=== PATIENT | male | born 1940 | race Caucasian/White ===

== ENCOUNTER 2016-10-16 08:44 | Inpatient (IN) ==
[2016-10-16 09:51] LABS: MANUAL DIFF NEEDED? NO
[2016-10-16 09:54] LABS: BASO% 0.4 % (0.0-0.8); EOS# 0.17 X1000 (0.0-0.7); EOS% 1.5 % (0.0-10.0); HEMATOCRIT 34.2 % (42.0-52.0); HEMOGLOBIN 11.4 g/dL (14.0-18.0); IMM GRAN# 0.03 X1000 (0.0-0.04); IMM GRAN% 0.3 % (0.0-0.5); LYMPH# 0.95 X1000 (1.2-3.4); LYMPH% 8.4 % (20.5-51.1); MCH 30.4 PG (27-31); MCHC 33.3 g/dL (33-37); MCV 91.2 FL (81-99); MONO# 0.66 X1000 (0.11-0.59); MONO% 5.8 % (1.7-9.3); MPV 10.3 FL (7.4-10.4); NEUT% 83.6 % (42.2-75.2); PLT 144 X1000 (130-400); RBC 3.75 XMIL (4.7-6.1)
[2016-10-16 10:04] LABS: INR 1.34; PROTIME 14.3 Seconds (9.2-11.7)
[2016-10-16 10:28] LABS: URINE CULTURE NEEDED? NO; URINE MICRO REVIEW NEEDED? NO; URINE SOURCE CATH
[2016-10-16 10:34] LABS: BILIRUBIN URINE NEGATIVE (NEGATIVE); BLOOD URINE MODERATE (NEGATIVE); COLOR YELLOW; GLUCOSE URINE NEGATIVE (NEGATIVE); LEUKOCYTES URINE NEGATIVE (NEGATIVE); NITRITE URINE NEGATIVE (NEGATIVE); PH URINE 6.5; PROTEIN URINE NEGATIVE (NEGATIVE); SP GRAVITY URINE 1.015; TURBIDITY URINE CLEAR (CLEAR); UROBILINOGEN URINE NORMAL (NORMAL)
[2016-10-16 10:35] LABS: AGAP 11; ALKALINE PHOSPHATASE 23 U/L (32-122); BUN 8 mg/dL (8-22); CALCIUM 4.7 mg/dL (8.8-10.2); CHLORIDE 115 mmol/L (98-107); CK PROFILE 131 U/L (24-204); COSMO 281; GOT 10 U/L (10-34); GPT 6 U/L (10-44); POTASSIUM 2.5 mmol/L (3.5-5.1); SODIUM 143 mmol/L (136-145); TCO2 17 mmol/L (25-35); TOTAL PROTEIN 3.5 g/dL (6.3-8.3)
[2016-10-16 10:36] LABS: UR EPITHELIAL CELLS <10 /HPF (<10); URINE BACTERIA NEGATIVE /HPF; URINE RBC 20-40 /HPF (<10); URINE WBC <10 /HPF (<10)
[2016-10-16] MEDS ORDERED: OFIRMEV 1000 MG/ISOTONIC SOLN 1,000 MG/100 ML BOTTLE ONE (12:23)
[2016-10-16] MEDS ORDERED: NS + KCL 20 MEQ 1,000 ML IV ONE (12:24)
[2016-10-16] MEDS: OFIRMEV 1000 MG/ISOTONIC SOLN 1,000 MG/100 ML BOTTLE IV SCH ×2 (12:30→18:23)
[2016-10-16] MEDS ORDERED: CALCIUM GLUCONATE 1 GM in NS 50 ML IV ONE (12:39)
[2016-10-16] MEDS ORDERED: VANCOMYCIN 1 GM/NS 1 GM/250 ML IVPB IV ONE ×2 (12:40→18:00)
[2016-10-16] MEDS ORDERED: ZOSYN 3.375 GM/NS 3.375 GM/50 ML IVPB IV ONE (12:40)
[2016-10-16] MEDS ORDERED: MAGNESIUM SULFATE 2 GM/S.W.I. 2 GM/50 ML IVPB IV ONE (12:50)
[2016-10-16] MEDS ORDERED: POTASSIUM CHLORIDE 60 MEQ in NS 500 ML IV SCH (13:45)
[2016-10-16 14:27] LABS: AGAP 14; ALKALINE PHOSPHATASE 47 U/L (32-122); BUN 12 mg/dL (8-22); CALCIUM 9.2 mg/dL (8.8-10.2); CHLORIDE 96 mmol/L (98-107); COSMO 266; GOT 30 U/L (10-34); GPT 15 U/L (10-44); POTASSIUM 4.5 mmol/L (3.5-5.1); SODIUM 133 mmol/L (136-145); TCO2 23 mmol/L (25-35); TOTAL BILIRUBIN 0.99 mg/dL (0.20-1.00); TOTAL PROTEIN 6.7 g/dL (6.3-8.3)
--- NOTE | 2016-10-16 14:51 | Diag Imaging Result Document ---
PROCEDURE NAME: CHEST-1 VIEW - 10/16/2016 PORTABLE CHEST: FINDINGS: Poor inspiratory effort. The heart is not enlarged. There are calcified granuloma in the lower right lung. There are dense infiltrates in the left base. No pleural effusions identified. IMPRESSION: Dense left basilar infiltrates. Followup PA and lateral recommended.
[2016-10-16] MEDS ORDERED: STERILE WATER INJ. INJ PRN (16:31)
[2016-10-16] MEDS: ATIVAN IV PRN ×3 (16:31→22:09)
[2016-10-16] MEDS ORDERED: VANCOMYCIN IV PER PHARMACY MISC SCH (16:31)
[2016-10-16] MEDS: DUONEB (A & A) INH SCH ×2 (16:45→21:30)
--- NOTE | 2016-10-16 17:33 | HISTORY AND PHYSICAL ---
CHIEF COMPLAINT: Fever. PRIMARY CARE PROVIDER: Dr. Jonel Segal. HISTORY OF PRESENT ILLNESS: Mr. Dario Pritchard is a 76-year-old, male with a history of dementia, constipation, TIAs, who apparently back on October 02, went to his primary care provider with complaints of coughing up bloody phlegm. He was started on Keflex and steroid therapy. Apparently, he improved, but then started having a cough again with some bloody phlegm that started over the weekend and then yesterday started having a fever of a subjective fever of 102. They returned to his primary care provider who started him on azithromycin. When he went home, he continued to have fever. Started having muscle jerking and twitching of the lower and upper extremities, became somewhat unresponsive around 0230 this morning and the ambulance was called. Presenting to the ER, he is very coarse throughout the left lung. He has a white count of 11,000 and he spiked a fever up to 103. He was started on vancomycin and Zosyn for broad spectrum coverage. He has had blood cultures. Urinalysis is negative for infection and he has not produced sputum for culture at this time. He also had low electrolytes where the potassium was 2.5, calcium was low, so those have been replaced, which could be the cause for his muscle jerking. Will admit him to the ICU and place IV fluids, replace electrolytes and give broad spectrum IV antibiotics and monitor closely. PAST MEDICAL HISTORY: Dementia, constipation, TIAs. SURGICAL HISTORY: None. SOCIAL HISTORY: Quit smoking 40 years ago. Quit smokeless tobacco about a month ago. He would chew tobacco. Denied alcohol or illicit drug use. Lives at home with his . Much information was obtained through her and his children that were at the bedside and they state that he gets around without any assistive devices. FAMILY HISTORY: Brother and sister had dementia. Mother had a kidney cancer. Father had colon and prostate cancer. REVIEW OF SYSTEMS: Difficult to obtain. ALLERGIES: No known drug allergies. HOME MEDICATIONS: Azithromycin 250 mg, docusate sodium 200 mg p.o. nightly, Pepcid 10 mg p.o. daily. Breo Ellipta inhaler daily. Seroquel 50 mg p.o. nightly. Rivastigmine tartrate 6 mg p.o. twice daily. LABORATORY DATA: White blood cells 11,000, hemoglobin 11, hematocrit 34, platelet count 144. INR is 1.34, PTT is 39.0. Ionized calcium is 1.22. Sodium on admit was 143, potassium was 2.5, BUN 8, creatinine 0.5, glucose was 65, calcium was 4.7. Then had a repeat of electrolytes at 1:35 today. Sodium was 133, potassium 4.5, BUN was 12. Creatinine 0.9, glucose is 99, calcium was 9.2, magnesium 1.8, bilirubin 0.99. AST 30, ALT 15. Serum lactate of 1.4. Chest x-ray: Dense left basilar infiltrates. PHYSICAL EXAMINATION: VITAL SIGNS: Temperature was a 103, heart rate 89, respiratory rate 22, blood pressure 154/83, O2 saturation 95% on room air. GENERAL: Mr. Dario Pritchard is a 76-year-old, male, who is in no acute distress, but is very lethargic and febrile. HEENT: Atraumatic, normocephalic. Pupils equal, round, reactive to light. Will slightly open his eyes. Will not do extraocular movements. Mucous membranes are dry. NECK: No JVD or carotid bruits noted. CARDIOVASCULAR: S1, S2. Regular rate and rhythm. No rubs, gallops, murmurs. PULMONARY: Clear to auscultation on the right. Very coarse with rhonchi throughout the left. No accessory muscle use or work of breathing noted. Currently on nasal cannula. GI: Soft, nontender, nondistended. Positive bowel sounds x4. EXTREMITIES: No edema noted. +2 dorsalis and radial pulses. NEURO: Oriented to name only. Follows simple commands and moved all extremities. There was significant muscle twitching that was intermittent in nature in upper and lower extremities. ASSESSMENT AND PLAN: 1. Left lower lobe pneumonia with a significant fever. Will order sputum culture if he is able to get one produced. Will do albuterol/Atrovent nebulizers with budesonide nebulizers and acetylcysteine nebs. Will continue vancomycin and Zosyn. 2. Muscle upper extremity and lower extremity contractions. Possibly from fever. Could be from questionable electrolyte imbalances. Repeat BMP shows that the potassium is back to normal along with the calcium and magnesium. Will continue to monitor. 3. Dementia. Continue home medications. Geodon if needed for delirium. 4. Constipation. Continue home medications. 5. History of transient ischemic attack. 6. Deep venous thrombosis prophylaxis. Will do sequential compression devices. Dictated by LEONA Alcantara for Pawel Richardson MD cc: LEONA Alcantara MD Jay Pohl, MD
--- NOTE | 2016-10-16 17:34 | Diag Imaging Result Document ---
PROCEDURE NAME: HEAD W/WO CONTRAST - 10/16/2016 CT OF THE HEAD WITH AND WITHOUT CONTRAST: FINDINGS: There are calcifications in the vertebral and internal carotid arteries bilaterally. There is mild generalized cerebral atrophy. There are patchy lucencies in the white matter of both hemispheres. There are some small lacunae in the basal ganglia on the right. There is a similar appearance on the previous study of 07/12/2014. There is particular atrophy with ex vacuo enlargement of the right temporal horn. There is no evidence of abnormal contrast enhancement. IMPRESSION: 1. No evidence of acute disease. 2. Chronic microvascular white matter changes and atherosclerosis.
[2016-10-16] MEDS: NS 1,000 ML IV SCH (18:23)
[2016-10-16] MEDS: ZOSYN 3.375 GM/NS 3.375 GM/50 ML IVPB IV SCH (19:40)
[2016-10-16 19:50] LABS: CALCIUM 9.3 mg/dL (8.8-10.2)
[2016-10-16] MEDS: EXELON PO SCH (20:47)
[2016-10-16] MEDS: COLACE PO SCH (20:47)
[2016-10-16] MEDS: SEROQUEL PO SCH (20:47)
[2016-10-16] MEDS: PULMICORT INH SCH (21:30)
[2016-10-16] MEDS: MUCOMYST 20% INH SCH (21:30)
[2016-10-17] MEDS: OFIRMEV 1000 MG/ISOTONIC SOLN 1,000 MG/100 ML BOTTLE IV SCH ×5 (00:37→23:31)
[2016-10-17] MEDS: ATIVAN IV PRN (00:38)
[2016-10-17] MEDS: ZOSYN 3.375 GM/NS 3.375 GM/50 ML IVPB IV SCH ×4 (02:33→19:42)
[2016-10-17] MEDS: DUONEB (A & A) INH SCH ×4 (03:50→21:10)
[2016-10-17 05:05] LABS: MANUAL DIFF NEEDED? NO
[2016-10-17 05:24] LABS: BASO% 0.4 % (0.0-0.8); EOS# 0.16 X1000 (0.0-0.7); EOS% 1.1 % (0.0-10.0); HEMOGLOBIN 16.3 g/dL (14.0-18.0); IMM GRAN# 0.04 X1000 (0.0-0.04); IMM GRAN% 0.3 % (0.0-0.5); LYMPH# 2.08 X1000 (1.2-3.4); LYMPH% 14.5 % (20.5-51.1); MCH 30.2 PG (27-31); MCHC 33.3 g/dL (33-37); MCV 90.9 FL (81-99); MONO# 1.54 X1000 (0.11-0.59); MONO% 10.7 % (1.7-9.3); MPV 10.7 FL (7.4-10.4); PLT 176 X1000 (130-400); RBC 5.39 XMIL (4.7-6.1)
[2016-10-17 05:31] LABS: AGAP 15; ALKALINE PHOSPHATASE 49 U/L (32-122); BUN 14 mg/dL (8-22); CALCIUM 8.9 mg/dL (8.8-10.2); CHLORIDE 99 mmol/L (98-107); COSMO 272; GOT 48 U/L (10-34); GPT 20 U/L (10-44); POTASSIUM 4.5 mmol/L (3.5-5.1); SODIUM 136 mmol/L (136-145); TCO2 22 mmol/L (25-35); TOTAL BILIRUBIN 1.32 mg/dL (0.20-1.00); TOTAL PROTEIN 7.2 g/dL (6.3-8.3)
[2016-10-17] MEDS: NS 1,000 ML IV SCH ×2 (05:52→09:44)
[2016-10-17] MEDS: PEPCID PO SCH (09:21)
[2016-10-17] MEDS: EXELON PO SCH ×2 (09:21→21:04)
[2016-10-17] MEDS: MUCOMYST 20% INH SCH ×2 (10:28→21:10)
[2016-10-17] MEDS: PULMICORT INH SCH ×2 (10:28→21:10)
--- NOTE | 2016-10-17 14:38 | PROGRESS NOTE ---
DATE: 10/17/2016 SUBJECTIVE: Patient is definitely more lethargic. As per family, he has been like this since last night. OBJECTIVE: Vital Signs: Temperature 98.5 degrees, heart rate 102, respiratory rate 17, blood pressure 104/60, O2 saturation 97% on 2 L nasal cannula. General Examination: This is a 76-year- old male, lying in bed, in no acute distress. HEENT: Head is normocephalic, atraumatic. Anicteric sclerae. Pale conjunctivae. Mucous membranes moist. Neck: Supple. No JVD noted. No carotid bruits. No lymphadenopathy. No thyromegaly. Cardiovascular: S1, S2 heard. No murmurs, gallops, or rubs. Regular rate and rhythm. Respiratory: Clear bilaterally to auscultation with very coarse breath sounds in the left base. Not using any accessory muscles or having work of breathing. GI: Soft. Nontender to palpation. Bowel sounds present. No organomegaly. Extremities: No clubbing, cyanosis, or edema. Peripheral pulses present in both legs. Neurological: Patient is alert and oriented x3. The patient is more lethargic and does not follow commands. Apparently he moves 4 extremities spontaneously. ASSESSMENT AND PLAN: 1. Left lower lobe pneumonia. Patient is on vancomycin and Zosyn. We will continue with nebulizations including albuterol and Atrovent. White cell count is normal, afebrile. We will continue with the same management. 2. New onset seizure. We were paged yesterday by the nurse. Apparently there was 1 episode of seizure but the patient was lethargic. So, we ordered a CT of the head with and without contrast which was not conclusive. At this time we are going to consult Dr. Gaviria and see if this patient really needs an EEG or not. 3. Dementia. Will continue home medications and Geodon if needed for dementia. 4. Constipation. Will continue with home medications. 5. History of transient ischemic attack. Aware. 6. Deep vein thrombosis prophylaxis with compression devices. cc: Pawel Richardson MD
--- NOTE | 2016-10-17 15:14 | CONSULTATION ---
DATE OF CONSULTATION: 10/17/2016 Mr. Pritchard is 76 years old with longstanding dementia, and he has possible recent hemoptysis and then presented with apparent tetany. He is not alert now and, based on his baseline cognitive impairment, I do not think he is able to provide accurate detailed history. History is taken from review of the hospital record and from discussion with attentive family, including , at the bedside. reports he had seemed stable cognitively in recent months. He had used donepezil in the remote past and then had unsteady gait. He took memantine briefly. He used rivastigmine patch and tolerated that at 4.6 mg daily dose. After the rivastigmine patch dose was increased to 9.5 mg daily, he had some problems with skin irritation at the patch site. For that reason, about 6 months ago, according to , he was switched to rivastigmine capsules 6 mg b.i.d. and he tolerated that change. Specifically, denies muscle cramping problems then and he did not have any typical cholinergic GI side effects then. About 2 weeks ago, he started "coughing up bloody stuff" and he had a course of antibiotics. His coughing improved. He presented 2 days ago with fever and memory seemed a little bit worse then. Later that day, approximately 40 hours ago, he began to have involuntary twitching movements initially on 1 side, but then involving all limbs vigorously, spontaneously, and simultaneously. His alertness was not good at that point. There was never clearly documented unconsciousness. He presented to the hospital and was found to have calcium 4.7, potassium 2.5, blood sugar 65. WBC count was 14,000. His metabolic problems were quickly corrected. He had initial temperature of 103 degrees, but has been afebrile since noon yesterday. Noncontrast CT of the head showed old right basal ganglia lacune and typical bilateral white matter changes, but nothing focal or acute and no evidence of bleeding. There is no history of organophosphate exposure. His magnesium and phosphorus levels were all normal. There is no history of parathyroid disease. Parathyroid hormone level was normal at 30 pg/mL yesterday afternoon. EXAMINATION: Mr. Pritchard is supine, able to be briefly alert, not continuing alertness if not vigorously stimulated. Tone is equal in the limbs. I witnessed frequent, rapid , involuntary muscle contraction involving all limbs, more prominent in the arms right now. Plantar response is silent bilaterally. Reflexes are 1+ at the wrist and 2+ at the knees. I did not ask him to stand. He has full lateral eye movement with passive head turning. He is breathing spontaneously. IMPRESSIONS: 1. Tetany with typical hypocalcemia. Rivastigmine as cholinesterase inhibitor may aggravate that condition, but clearly is not the cause of the tetany. We can consider reducing the rivastigmine dose or holding some doses, but I do not think that will make much difference in his recovery. 2. Baseline dementia, treated with cholinesterase inhibitor, reported by family to have a stable course before onset of recent illness. We might consider adding memantine again carefully later. Since he did not tolerate full-dose rivastigmine patch, he may continue rivastigmine capsules or we might carefully try donepezil tablet again later. 3. Reported possible hemoptysis. If he has pneumonia, as indicated on chest x- ray, that could be responsible for some of the deterioration in mental status, particularly in light of his baseline dementia. I do not have any urgent suggestion from a neurologic standpoint. I encouraged family to continue to be patient and hope that he will recover to baseline with maintenance of normal electrolytes, particularly calcium. If we do not see recovery with that management, we might consider EMG study, muscle biopsy, and other neuromuscular workup. I doubt that will be necessary. Thanks for asking me to see Mr. Pritchard. cc: MD FELIX Antoine III
[2016-10-17] MEDS: VANCOMYCIN 1.75 GM in NS 250 ML IV SCH (17:34)
[2016-10-17] MEDS: SEROQUEL PO SCH (21:04)
[2016-10-17] MEDS: COLACE PO SCH (21:04)
[2016-10-18] MEDS: NS 1,000 ML IV SCH ×2 (00:52→13:49)
[2016-10-18] MEDS: ZOSYN 3.375 GM/NS 3.375 GM/50 ML IVPB IV SCH ×4 (02:35→19:35)
[2016-10-18] MEDS: DUONEB (A & A) INH SCH ×4 (03:45→21:25)
[2016-10-18] MEDS: OFIRMEV 1000 MG/ISOTONIC SOLN 1,000 MG/100 ML BOTTLE IV SCH ×4 (05:34→23:49)
[2016-10-18] MEDS: EXELON PO SCH ×2 (08:00→20:41)
[2016-10-18] MEDS: PEPCID PO SCH (08:00)
[2016-10-18 10:46] LABS: MANUAL DIFF NEEDED? NO
[2016-10-18 11:02] LABS: BASO% 0.6 % (0.0-0.8); EOS# 0.37 X1000 (0.0-0.7); EOS% 2.9 % (0.0-10.0); HEMATOCRIT 42.7 % (42.0-52.0); IMM GRAN# 0.03 X1000 (0.0-0.04); IMM GRAN% 0.2 % (0.0-0.5); LYMPH# 1.17 X1000 (1.2-3.4); LYMPH% 9.2 % (20.5-51.1); MCH 30.5 PG (27-31); MCHC 32.8 g/dL (33-37); MONO# 1.46 X1000 (0.11-0.59); MONO% 11.5 % (1.7-9.3); NEUT% 75.6 % (42.2-75.2); PLT 152 X1000 (130-400); RBC 4.59 XMIL (4.7-6.1)
[2016-10-18 11:23] LABS: AGAP 12; BUN 19 mg/dL (8-22); CALCIUM 8.3 mg/dL (8.8-10.2); CHLORIDE 100 mmol/L (98-107); COSMO 272; POTASSIUM 4.7 mmol/L (3.5-5.1); SODIUM 135 mmol/L (136-145); TCO2 23 mmol/L (25-35)
--- NOTE | 2016-10-18 11:32 | PROGRESS NOTE ---
DATE: 10/18/2016 SUBJECTIVE: Mr. Pritchard is very poorly responsive this morning. OBJECTIVE: With vigorous stimulation, he moaned, groaned, did not speak. He stiffened his limbs and there was some tremulousness, but no clonic activity. When not stimulated, he seemed more peaceful, with less tremulousness. Plantar response is extensor bilaterally. Tone is equal in the limbs. Neck is supple. He has full lateral eye movement with passive head turning. He has had gradually less and less of the involuntary muscle contraction noted in the limb muscles. Calcium has been stable at around 8.9 to 9.3 for the last 48 hours. I do not see anything new on the chemistry profile. There was report of possible seizure overnight. I think this was more likely tremulousness or increased tetany, but we will get EEG to make sure he is not having subclinical seizures now. I discussed that unlikely possibility with family. ASSESSMENT AND PLAN: We reviewed discussion of the baseline encephalopathy predisposing him to a relatively protracted course following metabolic disturbance. I do not have any other suggestion from neurologic standpoint now. Thanks for allowing me to follow Mr. Pritchard. cc: Valorie Gaviria III, MD
[2016-10-18] MEDS: MUCOMYST 20% INH SCH ×2 (12:00→21:25)
[2016-10-18] MEDS: PULMICORT INH SCH ×2 (12:01→21:25)
--- NOTE | 2016-10-18 13:03 | PROGRESS NOTE ---
DATE: 10/18/2016 SUBJECTIVE: The patient is still lethargic. Responds to pain stimuli only. As per family who is at bedside, the patient has been like that for the last 24 hours. He spiked fever last night. OBJECTIVE: Vital Signs: Temperature 99.0 degrees, heart rate 90, respiratory rate 18, blood pressure 116/59, O2 saturation 99% on 2 L nasal cannula. General Examination: This is a 76-year- old male, lying in bed, in no acute distress. HEENT: Head is normocephalic, atraumatic. Anicteric sclerae and pale conjunctivae. Mucous membranes moist. Neck: Supple. No JVD noted. No carotid bruits. No lymphadenopathy. No thyromegaly. Cardiovascular: S1, S2 heard. No murmurs, gallops, or rubs. Regular rate and rhythm. Respiratory: Clear bilaterally to auscultation. No work of breathing. Respiratory: Coarse breath sounds present in both pulmonary naylor. The patient is not using any accessory muscles or having work of breathing. Abdomen: Soft. Nontender to palpation. Bowel sounds present. No organomegaly. Extremities: No clubbing, cyanosis, or edema. Peripheral pulses present in both legs. Neurological: Patient is lethargic. He does not follow commands. Apparently he moves 4 extremities. LABORATORY DATA: There are no labs from today. ASSESSMENT AND PLAN: 1. Left lower lobe pneumonia. Patient is on vancomycin and Zosyn from 2 days ago but apparently is still spiking fever. So at this time, we are going to continue with the same management but we are going to do a CT of the chest without contrast. 2. New onset seizures. Apparently the patient had 1 episode of seizure and although initially it was thought that it was probably tetany because calcium was low when we rechecked the labs 1 hour later they were completely normal so I think that there may be a component of seizures so an EEG was ordered by Dr. Gaviria, neurologist who was consulted. Help appreciated. Will see what that exam shows. 3. Dementia. Patient is on home medications. 4. Constipation. We will continue home medications. 5. History of TIA. Aware. cc: Pawel Richardson MD
--- NOTE | 2016-10-18 13:15 | Diag Imaging Result Document ---
PROCEDURE NAME: CT THORAX W/O CONTRAST - 10/18/2016 CT CHEST: A CT dose reduction protocol was used. COMPARISON: 10/16/2016. FINDINGS: There is grossly similar, dense opacification at the posterior portion of the left lower lobe. There is also some dense opacification of the medial right lower lobe. Both of these areas appear irregular like infiltrates, but are fairly well demarcated. The right lower lobe consolidation appears new from prior. There are severe degenerative osteophytes throughout the thoracic spine. No acute bony lesions. Heart and great vessels are normal. There is a low- density right adrenal gland mass compatible with a benign fatty adenoma. This measures 2.9 cm. The density measurement is 2. The gallbladder is packed with numerous gallstones exhibiting internal vacuum phenomenon. The bile is hyperdense likely from the recent contrast administration on 10/16/2016. No evidence of gallbladder wall thickening or surrounding inflammation. IMPRESSION: 1. Dense bilateral lower lobe infiltrate suggesting pneumonia. Recommend treatment and followup. 2. Benign-appearing right adrenal adenoma. 3. Gallbladder packed with gallstones. [facility]
[2016-10-18] MEDS: VANCOMYCIN 1.75 GM in NS 250 ML IV SCH (17:29)
[2016-10-18] MEDS: COLACE PO SCH (20:41)
[2016-10-18] MEDS: SEROQUEL PO SCH (20:42)
--- NOTE | 2016-10-18 22:20 | EEG REPORT ---
DATE: 10/18/2016 ICU bed 11 EEG #[id number] COMMENT: This is a digitally recorded EEG done portably in the ICU on a 76-year-old patient with recent profound hypocalcemia, tetany, baseline dementia, question of recent seizure. FINDINGS: During waking, polymorphic and rhythmic theta frequencies are present across both hemispheres diffusely. There is very prominent slowing into the delta range present across the frontal and central regions bilaterally. Drowsing occurred briefly. There was no variation to correlate with spontaneous sleep. Photic stimulation did not alter the record. No definite epileptiform discharge was identified. INTERPRETATION: Abnormal EEG because of generalized slowing. CORRELATION: This is indicative of a diffuse encephalopathy and is nonspecific. The absence of epileptiform discharges on a single EEG does not exclude a clinical diagnosis of seizures, but there is nothing on this record to establish the presence of a seizure disorder. cc: Valorie Gaviria III, MD
[2016-10-19] MEDS: ZOSYN 3.375 GM/NS 3.375 GM/50 ML IVPB IV SCH ×4 (02:06→19:59)
[2016-10-19] MEDS: DUONEB (A & A) INH SCH ×6 (04:05→23:13)
[2016-10-19] MEDS: OFIRMEV 1000 MG/ISOTONIC SOLN 1,000 MG/100 ML BOTTLE IV SCH ×5 (05:28→23:56)
[2016-10-19] MEDS: NS 1,000 ML IV SCH ×2 (07:40→23:00)
[2016-10-19] MEDS: MUCOMYST 20% INH SCH ×2 (08:21→19:03)
[2016-10-19] MEDS: PULMICORT INH SCH ×2 (08:22→19:03)
[2016-10-19 08:45] LABS: MANUAL DIFF NEEDED? NO
[2016-10-19 08:50] LABS: BASO% 0.8 % (0.0-0.8); EOS# 0.24 X1000 (0.0-0.7); EOS% 1.7 % (0.0-10.0); HEMATOCRIT 43.7 % (42.0-52.0); IMM GRAN# 0.03 X1000 (0.0-0.04); IMM GRAN% 0.2 % (0.0-0.5); LYMPH# 1.43 X1000 (1.2-3.4); LYMPH% 9.9 % (20.5-51.1); MCV 93.8 FL (81-99); MONO% 8.3 % (1.7-9.3); MPV 10.3 FL (7.4-10.4); NEUT% 79.1 % (42.2-75.2); PLT 169 X1000 (130-400); RBC 4.66 XMIL (4.7-6.1)
[2016-10-19 09:01] LABS: ALLEN TEST YES; BE -6.8 mmoll (-3.0-3.0); BLOOD TYPE ARTERIAL; DRAW SITE R RADIAL; METHB 1.4 % (0.0-1.5); O2(CT) 17.8 mL/dL (15.0-23.0); PO2(98.6) 56 mmHg (60-100); SAMPLE BLOOD; SAO2 90.9 % (95.0-100.0); THB 14.5 g/dL (11.5-17.4)
[2016-10-19 09:03] LABS: MODALITY VENTIMASK; PCO2(98.6) 72 mmHg (35-45); pH(98.6) 7.13 (7.35-7.45)
[2016-10-19] MEDS: EXELON PO SCH ×2 (09:18→23:01)
[2016-10-19] MEDS: PEPCID PO SCH (09:18)
[2016-10-19 09:20] LABS: AGAP 14; BUN 22 mg/dL (8-22); CALCIUM 8.3 mg/dL (8.8-10.2); CHLORIDE 100 mmol/L (98-107); COSMO 276; POTASSIUM 4.8 mmol/L (3.5-5.1); SODIUM 136 mmol/L (136-145); TCO2 22 mmol/L (25-35)
[2016-10-19] MEDS: ATIVAN IV PRN (09:26)
[2016-10-19 10:31] LABS: ALLEN TEST YES; BE -6.1 mmoll (-3.0-3.0); BLOOD TYPE ARTERIAL; DRAW SITE R RADIAL; METHB 2.1 % (0.0-1.5); O2(CT) 20.6 mL/dL (15.0-23.0); PO2(98.6) 337 mmHg (60-100); SAMPLE BLOOD; SAO2 99.7 % (95.0-100.0); THB 14.6 g/dL (11.5-17.4)
[2016-10-19 10:33] LABS: MODALITY BI PAP; PCO2(98.6) 65 mmHg (35-45); pH(98.6) 7.17 (7.35-7.45)
--- NOTE | 2016-10-19 11:07 | PROGRESS NOTE ---
DATE: 10/19/2016 SUBJECTIVE: The patient is still lethargic, responds to painful stimuli only. OBJECTIVE: Vital signs: Temperature 99.8 but at midnight he got a 100.3, heart rate 150, respiratory rate 24, blood pressure 149/70, O2 sat 94% on 2 L nasal cannula. General: This is a 76-year-old male lying in bed in no acute distress. HEENT: Head is normocephalic and atraumatic. Anicteric sclerae. Pale conjunctivae. Mucous membranes moist. Neck : Supple, no JVD noted, no carotid bruits, no lymphadenopathy, no thyromegaly. Cardiovascular: S1, S2 heard, no murmurs, gallops, or rubs, and regular rate and rhythm. Respiratory: Coarse breath sounds are still present in both pulmonary naylor. The patient is not using any accessory muscles or having work of breathing. Abdomen: Soft, nontender to palpation, bowel sounds present , no organomegaly. Extremities: No clubbing, cyanosis, or edema. Peripheral pulses present in both legs. Neurological: The patient is still lethargic, does not follow commands, of course. LABORATORY DATA: ABG shows pH of 7.13, pCO2 of 72, pO2 of 56. BMP shows a white cell count of 14.50, hemoglobin 14.0, hematocrit 43.7, platelets 169. ASSESSMENT AND PLAN: 1. Acute hypercapnic respiratory failure. Because patient continues to be lethargic, we have checked an ABG with results as above. We are going to use BiPAP immediately and will check an ABG in one hour. If this patient does not respond to the therapy, will go ahead and intubate him. Pulmonary will be consulted as well. 2. Left lower lobe pneumonia. Patient on vancomycin and Zosyn for the last 3 days, but apparently he is still spiking fever. At this point, we are going to continue with the same management and will consult Dr. Aparicio to get input from Infectious Disease. 3. New-onset seizures. EEG was inconclusive. Dr. Gaviria from Neurology is following this patient, help appreciated. 4. Dementia. The patient is home medications. 5. Constipation. Will continue with home medications. 6. History of TIA, aware. Addendum: Patient family reports code status is DNR so will document it in the chart. cc: Pawel Richardson MD [facility]
--- NOTE | 2016-10-19 13:59 | PROGRESS NOTE ---
DATE: 10/19/2016 Mr. Pritchard continues to be very poorly responsive. He had fairly infrequent twitching in the muscles during my time at the bedside. His EEG did not show definite evidence of seizure, but there was generalized slowing consistent with his baseline dementia and presumed metabolic encephalopathy. I had a lengthy discussion with the and daughter regarding his poor prognosis. I agree with their plans for conservative management, focusing on comfort without adding further life support measures. I do not have any other suggestions right now from a neurologic standpoint. Thanks for allowing me to follow Mr. Pritchard. cc: Valorie Gaviria III, MD
--- NOTE | 2016-10-19 15:05 | CONSULTATION ---
DATE OF CONSULTATION: 10/19/2016 PULMONARY CONSULT REFERRING PHYSICIAN: Dr. Davison CHIEF COMPLAINT: Fever. HISTORY OF PRESENT ILLNESS: This is a 76-year-old male with a past medical history of dementia, constipation, and TIAs, who initially presented to the Emergency Room with decreased mental status, productive cough, and fever. states that he has been sick for a couple of weeks with productive cough and subjective fever. He has been in ICU since and has been tolerating nasal cannula, although minimally responsive. This morning, he developed respiratory distress and was placed on Ventimask, then nonrebreather, and now he is on BiPAP. He continues to be unresponsive and tachycardic. Family confirms Do Not Resuscitate (DNR) status, and they remain at the bedside. REVIEW OF SYSTEMS: Unable to obtain. PAST MEDICAL HISTORY: As mentioned in HPI. Otherwise noncontributory. PAST SURGICAL HISTORY: None. SOCIAL HISTORY: The patient quit smoking 40 years ago. Denied alcohol or illicit drug use. Lives at home with family. FAMILY HISTORY: Notable for dementia and kidney cancer, colon, and prostate cancer. ALLERGIES: No known drug allergies. ACTIVE MEDICATIONS: Ofirmev, Mucomyst, DuoNeb, Pulmicort, Colace, Pepcid, Ativan, vancomycin, Zosyn, Seroquel, Exelon, Geodon. PHYSICAL EXAMINATION: Vital signs: Temperature 99.8, heart rate 115, respiratory rate 24, blood pressure 149/70, oxygen saturation 94%. HEENT: Normocephalic, atraumatic. Cardiovascular: Tachycardic rate. S1, S2 present. Chest: Reduced entry with diminished breath sounds bilaterally. Some coarse breath sounds, more predominant on the left. Abdomen : Hypoactive bowel sounds. Extremities: Distal pulses palpable. Neurologic: Unresponsive. LABS AND INVESTIGATIONS: WBC 14.5, RBCs 4.66, hemoglobin 14, hematocrit 43.7, platelet count 169. Blood gas reveals a pH of 7.13, PCO2 of 72, PO2 of 56, HCO3 of 19.3, saturated oxygen of 91. CT of the chest performed on 10/18/2016 shows dense bilateral lobe infiltrates suggesting pneumonia, benign-appearing right adrenal adenoma and gallbladder packed with gallstones. ASSESSMENT AND PLAN: This is a 76-year-old male with a past medical history mentioned in the HPI who presented initially to the hospital with complaints of fever. Pneumonia, likely aspiration due to seizure like activity and encephalopathy. Respiratory failure. 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 Base line dementia. He remains unresponsive on BiPAP at this time for his respiratory failure. He is receiving antibiotics for his pneumonia, inhaled bronchodilators, Ofirmev, Ativan, and Geodon. Family at bedside does confirm DNR status. Will repeat blood gas two hours after initiation of BiPAP, and further recommendations pending diagnostic studies. Thank you for the courtesy of this consult. cc: Lisa Street MD MTDD
[2016-10-19] MEDS: VANCOMYCIN 1.75 GM in NS 250 ML IV SCH (18:16)
[2016-10-19] MEDS: COLACE PO SCH (23:01)
[2016-10-19] MEDS: SEROQUEL PO SCH (23:02)
[2016-10-20] MEDS: ATIVAN IV PRN ×6 (01:07→20:17)
[2016-10-20] MEDS: ZOSYN 3.375 GM/NS 3.375 GM/50 ML IVPB IV SCH ×3 (02:38→14:32)
[2016-10-20] MEDS: DUONEB (A & A) INH SCH ×3 (03:15→11:26)
[2016-10-20 04:58] LABS: ALLEN TEST YES; BE 5.9 mmoll (-3.0-3.0); BLOOD TYPE ARTERIAL; DRAW SITE R RADIAL; O2(CT) 19.8 mL/dL (15.0-23.0); PO2(98.6) 213 mmHg (60-100); SAMPLE BLOOD; SAO2 100.1 % (95.0-100.0); THB 14.3 g/dL (11.5-17.4); pH(98.6) 7.31 (7.35-7.45)
[2016-10-20 04:59] LABS: MODALITY BI PAP
[2016-10-20 05:00] LABS: PCO2(98.6) 69 mmHg (35-45)
[2016-10-20 05:24] LABS: BASO% 0.1 % (0.0-0.8); HEMATOCRIT 41.3 % (42.0-52.0); HEMOGLOBIN 13.3 g/dL (14.0-18.0); IMM GRAN# 0.04 X1000 (0.0-0.04); IMM GRAN% 0.3 % (0.0-0.5); LYMPH# 0.41 X1000 (1.2-3.4); LYMPH% 2.8 % (20.5-51.1); MANUAL DIFF NEEDED? YES; MCHC 32.2 g/dL (33-37); MCV 93.2 FL (81-99); MONO# 0.94 X1000 (0.11-0.59); MONO% 6.5 % (1.7-9.3); MPV 10.7 FL (7.4-10.4); NEUT% 90.3 % (42.2-75.2); PLT 164 X1000 (130-400); RBC 4.43 XMIL (4.7-6.1)
[2016-10-20 05:54] LABS: BANDS 4 % (0-1); LYMPHS 4 % (21-51); MONO 6 % (1-9)
[2016-10-20 05:56] LABS: AGAP 14; BUN 32 mg/dL (8-22); CALCIUM 8.8 mg/dL (8.8-10.2); CHLORIDE 99 mmol/L (98-107); COSMO 292; POTASSIUM 4.5 mmol/L (3.5-5.1); SODIUM 141 mmol/L (136-145); TCO2 28 mmol/L (25-35)
[2016-10-20] MEDS: OFIRMEV 1000 MG/ISOTONIC SOLN 1,000 MG/100 ML BOTTLE IV SCH ×2 (06:11→11:30)
[2016-10-20] MEDS: PULMICORT INH SCH (07:59)
[2016-10-20] MEDS: MUCOMYST 20% INH SCH (07:59)
[2016-10-20] MEDS: EXELON PO SCH (08:01)
[2016-10-20] MEDS: PEPCID PO SCH (08:01)
[2016-10-20] MEDS: ZOFRAN IV ONE ×2 (08:06→08:07)
[2016-10-20] MEDS ORDERED: ATIVAN IV PRN (09:00)
[2016-10-20] MEDS ORDERED: CLINIMIX E 4.25%-5% SOLUTION 1,000 ML IV SCH (09:20)
[2016-10-20] MEDS ORDERED: LIPOSYN 20% 250 ML IV SCH (09:20)
--- NOTE | 2016-10-20 09:54 | PROGRESS NOTE ---
DATE: 10/20/2016 SUBJECTIVE: Patient remains lethargic. As per nursing staff, the patient was having involuntary movements like 15-20 beats, moving the right upper extremity. He received Ativan and that controlled the problem. OBJECTIVE: Vital Signs: Temperature 97.6 degrees, heart rate 95, respiratory rate 16, blood pressure 135/63 and O2 saturation 100% on BiPAP machine. General: This is a 76-year-old, chronically ill-looking and frail, male, lying in bed in no acute distress. HEENT: Head is normocephalic, atraumatic. Anicteric sclerae and pale conjunctivae. Mucous membranes dry. An NG tube in place that is draining brown secretions. No blood on it. Neck: Supple. No JVD noted. No carotid bruits. No lymphadenopathy. No thyromegaly. Cardiovascular exam: S1, S2 heard. No murmurs, gallops, or rubs. Regular rate and rhythm. Respiratory exam: Coarse breath sounds. Still present in both pulmonary naylor. The patient is not using any accessory muscles or having work of breathing. Abdomen: Soft, a little bit distended, but nontender to palpation. Bowel sounds present. No organomegaly. Extremities: No clubbing, cyanosis, or edema. Peripheral pulses present in both legs. Neurological exam: The patient continues to be lethargic and apparently moves all 4 extremities. LABORATORY DATA: White cell count 14.4, hemoglobin 13.3, hematocrit 21.3, platelets 164. ABG from today shows pH 7.31, pCO2 69, PO2 113 and BMP is unremarkable. ASSESSMENT AND PLAN: 1. Acute hypercapnic respiratory failure. The patient continues to be lethargic and arterial blood gas from this morning shows still high CO2. Patient is [id number], so we are not going to intubate him. Pulmonary is following with this patient as well. Patient is on DuoNeb every 4 hours as scheduled. 2. Left lower lobe pneumonia. Patient is on vancomycin and Zosyn for the last 4 days. He is not spiking fever anymore. We are going to continue with the same management. Blood cultures are so far negative. His sputum culture grew bacteria called Hafnia alvei, which is sensitive to Zosyn. We will continue with the same management. 3. New onset seizure. Electroencephalogram was inconclusive and did not show any seizure activity. Dr. Gaviria is following this patient. I do not think that this is really truly a seizure, but involuntary movements probably related to the infection. On top of that, this patient has a baseline dementia. We will continue with Ativan as needed 4. Dementia. Patient is on home medication, but because he was not able to take any pills, he was out of medications for the last 4 days. The patient has Geodon to use it in case he becomes agitated. 5. Constipation. We will continue with home medications. 6. History of transient ischemic attack, aware. 7. Code status [id number] level 1. cc: Pawel Richardson MD
[2016-10-20] MEDS: GEODON IM PRN ×2 (10:50→21:22)
[2016-10-20] MEDS ORDERED: STERILE WATER INJ. INJ ONE (13:07)
[2016-10-20] MEDS ORDERED: GEODON IM ONE (13:07)
[2016-10-20] MEDS ORDERED: DIPRIVAN 1% 1,000 MG/100 ML BOTTLE IV SCH (13:11)
[2016-10-20] MEDS: MORPHINE IV PRN ×2 (14:12→20:17)
[2016-10-21] MEDS: MORPHINE IV PRN ×2 (04:02→19:03)
[2016-10-21] MEDS: ATIVAN IV PRN ×5 (04:02→19:06)
[2016-10-21] MEDS: GEODON IM PRN (04:04)
[2016-10-21] MEDS ORDERED: GEODON IM PRN (08:05)
--- NOTE | 2016-10-21 09:38 | PROGRESS NOTE ---
DATE: 10/21/2016 SUBJECTIVE: Patient continues to be lethargic, tachypneic, in moderate respiratory distress. Also having involuntary movements in the right leg and right arm. OBJECTIVE: Vital Signs: Temperature 101.5 degrees, heart rate 126, respiratory rate 30, blood pressure 151/69, O2 saturation 90% on nonrebreather mask. General Examination: This is a chronically ill-looking and pale, 76-year-old, male, lying in bed, in no acute distress. HEENT: Head is normocephalic and atraumatic. Anicteric sclerae and pale conjunctivae. Mucous membranes dry. Cardiovascular Examination: S1 and S2 heard. No murmurs, gallops, or rubs. Tachycardic. Respiratory Examination: Coarse breath sounds are getting worse. Also, in moderate respiratory distress. ASSESSMENT AND PLAN: 1. Acute hypercapnic respiratory failure. 2. Left lower lobe pneumonia. 3. Seizure disorder. 4. Dementia. 5. Constipation. PLAN: The patient's family has decided to withdraw care on this patient so the BiPAP machine has been discontinued and all medications as well. He is only on morphine and Ativan to control the pain sensation with shortness of breath and agitation. Also, we are using Geodon just in case for these abnormal involuntary movements. In any case, this patient is not doing any good. He is getting worse and worse day by day. We are going to transfer him to a regular room today. We will continue to monitor him closely in the hospital. cc: Pawel Richardson MD
[2016-10-21] MEDS ORDERED: OFIRMEV 1000 MG/ISOTONIC SOLN 1,000 MG/100 ML BOTTLE IV ONE (11:26)
[2016-10-22] MEDS: ATIVAN IV PRN (02:44)
[2016-10-22] MEDS: MORPHINE IV PRN (02:44)
[2016-10-22] MEDS ORDERED: TYLENOL PR PRN (07:50)
[2016-10-22 08:10] VITALS: BP 132/64
[2016-10-22] MEDS ORDERED: OFIRMEV 1000 MG/ISOTONIC SOLN 1,000 MG/100 ML BOTTLE IV PRN (09:20)
--- NOTE | 2016-10-22 10:48 | PROGRESS NOTE ---
DATE: 10/22/2016 SUBJECTIVE: The patient continues to be lethargic and no moderate respiratory distress. As per family who is at bedside, almost all involuntary movement has been controlled with medications that he is receiving. OBJECTIVE: Vital Signs: Temperature 105.9, heart rate 120, respiratory rate 15, blood pressure 132/64, O2 saturation 100% on non-rebreather mask. General Examination: This is a chronically ill-looking and frail, 76-year-old male, lying in bed, in no acute distress. HEENT: Head is normocephalic, atraumatic. Neck: Supple. No JVD. Cardiovascular: S1, S2 heard. No murmurs, gallops, or rubs. Regular rate and rhythm. Respiratory: Coarse breath sounds that are getting worse. Moderate respiratory distress. Abdomen: Soft, nondistended bowel sounds present. No organomegaly. Extremities: No clubbing, cyanosis, or edema. Neurological: The patient is on lethargic., does not follow commands. ASSESSMENT: 1. Acute hypercapnic respiratory failure. 2. Left lower lobe pneumonia. 3. Seizure disorder. 4. Dementia. 5. Constipation. PLAN: As we mentioned before, patient was admitted for all conditions mentioned above, but because this patient was not doing good and started developing severe hypercapnic respiratory failure. Finally decided to withdraw care. Currently, patient is on morphine and Ativan to control pain. Difficulty in breathing and agitation. Also involuntary movements. We are using Geodon as well. At this point, we are going to continue with the same medications. We are going to consult hospice today. We are going to remove NG tube today. We will follow this patient closely in the hospital. cc: Pawel Richardson MD
--- NOTE | 2016-10-23 18:54 | PROVIDER DOCUMENTATION ---
This chart was entered by Marino Montero Scribe, acting as scribe for Len Garcia MD. HPI-Fever - General Chief Complaint: Possible Sepsis-D Stated Complaint: seizure Time Seen by Provider: 10/16/16 09:15 Source: family, EMS Unable to obtain history due to:: altered Allergies/Adverse Reactions: Patient Allergies Allergy/AdvReac Type Severity Reaction Status Date / Time No Known Allergies Allergy Verified 10/16/16 09:19 Home Medications: Home Medication List Medication Instructions Recorded Confirmed Last Taken Type Azithromycin [Azithromycin] 1 packet PO DIRECTED 10/16/16 10/16/16 10/15/16 20:00 History Docusate Sodium [Stool Softener] 200 mg PO HS 10/16/16 10/16/16 10/15/16 20:00 History Famotidine 10 mg PO DAILY 10/16/16 10/16/16 10/15/16 09:00 History Fluticasone/Vilanterol [Breo 1 each IH DAILY 10/16/16 10/16/16 10/15/16 20:00 History Ellipta Inhaler] Quetiapine Fumarate [Seroquel] 50 mg PO HS 10/16/16 10/16/16 10/15/16 20:00 History Rivastigmine Tartrate 6 mg PO BID 10/16/16 10/16/16 10/15/16 20:00 History [Rivastigmine] - History of Present Illness-Fever Nature of Presenting Problem: 76 y/o M presents to the ED via EMS due to decreased responsiveness. family states patient recently dx with pneumonia and being treated with Zithromycin. fever at home 102. hx of dementia and TIA. family states patient has also had lower extremity tremors. denies all other symptoms. no other voiced complaints. Fever Severity/Quality: reports: greater than 102 F Onset/Duration: reports: other (x7 hours) Timing: reports: still present Severity: reports: moderate Context: reports: none Recent Illness?: reports: pneumonia Fever Therapy PONDMAN: Initiated Tylenol Cognitive Baseline: alert, oriented x3 Modifying Factors: improves with: nothing Associated Symptoms: reports: cough, fever/chills, weakness Similar Symptoms Previously?: No Recently seen or treated by another doctor?: Yes Review of Systems - Adult - REVIEW OF SYSTEMS - ADULT ROS:: ROS per family Constitutional: reports: chills, fever Eyes: reports: no symptoms reported Ears, Nose, Mouth & Throat: reports: no symptoms reported Cardiovascular: denies: chest pain, palpitations Respiratory: reports: cough. denies: shortness of breath Gastrointestinal: denies: diarrhea, nausea, vomiting Genitourinary: denies: dysuria, frequency Musculoskeletal: denies: joint pain, muscle aches Integumentary: denies: itching, rash Neurological: reports: tremors. denies: dizziness/vertigo, headache/migraines Psychiatric: reports: no symptoms reported Endocrine: reports: no symptoms reported Hematologic/Lymphatic: reports: no symptoms reported Allergic/Immunologic: reports: no symptoms reported All Other Systems: Reviewed and Negative Past History - Adult - PAST MEDICAL HISTORY-ADULT Review of Records: reports: Nursing Assessment Review, Medications Reviewed Major Childhood Illnesses: reports: denies history Cardiovascular: reports: denies history Respiratory: reports: denies history Gastrointestinal: reports: denies history Obstetrical/Gynecological: reports: denies history Genitourinary: reports: denies history Musculoskeletal: reports: denies history Neurological: reports: Alzheimer's, CVA, dementia Psychiatric: reports: denies history Endocrine/Immune: reports: denies history Other Conditions: reports: denies history - PRIOR SURGERIES/PROCEDURES Surgical/Procedure History: reports: none - IMMUNIZATION STATUS Childhood Immunizations: See Nurse Assessment Flu Vaccine: See Nurse Assessment - SOCIAL HISTORY Smoking: denies Substance Use: none/never Alcohol Use Frequency: never Physical Exam-General - PHYSICAL EXAM-ADULT Exam Limited by: decreased responsiveness Initial Vital Signs Reviewed: Yes - CONSTITUTIONAL General Appearance: mild distress, lethargic - EYES Eyes: PERRL/EOMI - HEAD, EARS, NOSE, MOUTH & THROAT HENMT: moist mucous membranes, normal ENT inspection - RESPIRATORY Respiratory: no respiratory distress, no accessory muscle use, rales (RLL) - CARDIOVASCULAR Cardiovascular: normal peripheral pulses, regular rate, rhythm - GASTROINTESTINAL (ABDOMEN) Abdominal Exam: normal bowel sounds, soft - MUSCULOSKELETAL Extremity: no pedal edema, other (bilateral lower tremor) - SKIN Integumentary: normal color, warm/dry - NEUROLOGIC Neurologic: other (unresponsive to questions). negative: facial droop Progress - PLAN OF CARE/RESULTS Progress/Plan/Lab Results: Orders Category Date Time Status Admit - [facility] Routine AdmDCTranf 10/16/16 16:31 Ordered Activity - Up with Assistance ORDERED Care 10/16/16 16:31 Completed Apply Mechanical Device [QM] ORDERED Care 10/16/16 16:31 Active Cardiac Monitoring DIRECTED Care 10/16/16 09:27 Completed Elevate Head of Bed DIRECTED Care 10/16/16 16:31 Completed Encourage Fluids DIRECTED Care 10/16/16 16:31 Completed FSBS/Accucheck Result AC + HS Care 10/16/16 16:31 Completed IV Insertion ORDERED Care 10/16/16 09:27 Completed Intake and Output-Strict Q 8-HR ASSESS Care 10/16/16 16:31 Completed Notify MD of + Sepsis Screen NOW Care 10/16/16 09:27 Inactive Nursing- Assist w/ IS as order ORDERED Care 10/16/16 16:31 Active Turn, Cough and Deep Breathe Q2HR Care 10/16/16 16:31 Completed Vital Signs Order Q1H Care 10/16/16 16:31 Completed Social Service Consult Routine Cons 10/16/16 16:31 Active CHEST-1 VIEW [RAD] Stat Exams 10/16/16 09:27 Completed BLOOD CULTURE [BLDCUL] Stat Lab 10/16/16 10:17 Completed CBC WITH DIFF [HEME] Routine Lab 10/17/16 04:08 Completed CBC WITH DIFF [HEME] Stat Lab 10/16/16 09:47 Completed CK PROFILE [SP CHEM] Stat Lab 10/16/16 09:47 Completed CMP [COMPREHENSIVE METABOLIC PANEL] [CHEM] Stat Lab 10/16/16 13:35 Completed COMPREHENSIVE METABOLIC PANEL [CHEM] Routine Lab 10/17/16 04:08 Completed COMPREHENSIVE METABOLIC PANEL [CHEM] Stat Lab 10/16/16 09:47 Completed I-STAT IONIZED CALCIUM [RESP] Routine Lab 10/16/16 13:05 Completed LACTATE, PLASMA [CHEM] Stat Lab 10/16/16 09:47 Completed LACTATE, PLASMA [CHEM] Stat Lab 10/16/16 13:35 Completed MAGNESIUM [CHEM] Routine Lab 10/17/16 04:08 Completed MAGNESIUM [CHEM] Stat Lab 10/16/16 09:47 Completed PHOSPHORUS [CHEM] Routine Lab 10/17/16 04:08 Completed PROTIME WITH INR [COAG] Stat Lab 10/16/16 09:47 Completed PTH W CA AND PHOS [CHEM] Stat Lab 10/16/16 13:35 Completed PTT [COAG] Stat Lab 10/16/16 09:47 Completed SPUTUM CULTURE WITH GRAM STAIN [RM] Routine Lab 10/16/16 21:47 Completed TROPONIN T Stat Lab 10/16/16 09:47 Completed URINALYSIS W/POSS RFLX CULT-1 [URINALYSIS] Stat Lab 10/16/16 10:00 Completed 0.9% Sodium Chloride Inj [Ns] 1,000 ml Med 10/16/16 16:31 Discontinued IV 75 mls/hr Acetaminophen [Ofirmev 1000 mg/Isotonic Soln] Med 10/16/16 12:23 Discontinued 1,000 mg in 100 ml .ROUTE As Directed Acetaminophen [Ofirmev 1000 mg/Isotonic Soln] Med 10/16/16 12:30 Discontinued 1,000 mg in 100 ml IV Q6H Acetylcysteine 20% [Mucomyst 20%] Med 10/16/16 19:30 Discontinued 3 ml INH RTBID Albuterol 2.5MG/Ipratrop 0.5MG [Duoneb (A & A)] Med 10/16/16 16:31 Discontinued 3 ml INH RTQ6H Budesonide [Pulmicort] Med 10/16/16 19:30 Discontinued 0.5 mg INH RTBID Calcium Gluconate 1 gm Med 10/16/16 12:39 Discontinued 0.9% Sodium Chloride Inj [Ns] 50 ml IV NOW Docusate Sodium [Colace] Med 10/16/16 21:00 Discontinued 200 mg PO HS Famotidine [Pepcid] Med 10/17/16 09:00 Discontinued 10 mg PO DAILY Magnesium Sulfate 2 gm/S.w.i. [Magnesium Sulfate 2 gm/S Med 10/16/16 12:50 Discontinued .w.i] 2 gm in 50 ml IV NOW Ns + KCl 20 Meq 1,000 ml Med 10/16/16 12:24 Discontinued IV Per Protocol Pharmacy Order [Vancomycin IV Per Pharmacy] Med 10/16/16 16:31 Discontinued 1 each MISC DIRECTED Piperacil/Tazobact 3.375 gm/Ns [Zosyn 3.375 gm/Ns] Med 10/16/16 12:40 Discontinued 3.375 gm in 50 ml IV NOW Piperacil/Tazobact 3.375 gm/Ns [Zosyn 3.375 gm/Ns] Med 10/16/16 20:00 Discontinued 3.375 gm in 50 ml IV Q6H Potassium Chloride 60 meq Med 10/16/16 13:45 Discontinued 0.9% Sodium Chloride Inj [Ns] 500 ml IV Q8H Quetiapine [Seroquel] Med 10/16/16 21:00 Discontinued 50 mg PO HS Rivastigmine [Exelon] Med 10/16/16 21:00 Discontinued 6 mg PO BID Vancomycin 1 gm/Ns Med 10/16/16 12:40 Discontinued 1 gm in 250 ml IV NOW Water, Sterile Inj [Sterile Water Inj] Med 10/16/16 16:31 Discontinued 1.2 ml INJ PRN PRN Ziprasidone [Geodon] Med 10/16/16 16:31 Discontinued 10 mg IM Q6H PRN PRN Aerosol Treatments Routine Oth 10/16/16 16:31 Completed Incentive Spirometer Routine Ot 10/16/16 16:31 Completed Oxygen Device Routine Ot 10/16/16 16:31 Completed Oxygen Device Stat Ot 10/16/16 09:27 Completed Pulse Oximetry Routine Ot 10/16/16 16:31 Completed Transfer/Admit Order [TRANSFER] Routine Transfer 10/16/16 14:27 Completed Result Diagrams: 10/20/16 04:38 10/20/16 04:38 - XRAY 1 XRAY Study: Chest Impression: Abnormal (hilar pneumonia; LLL infiltrate) - CONSULTS/PCP/HOSPITALIST Notification #1 *Consult/PCP/Hospitalist*: Dr Davison Time Discussed: 13:20 Consult Disposition: Will see in ED, Admit Departure - Departure Time of Disposition Decision: 16:22 DIAGNOSIS: Hypokalemia, Hypocalcemia Sepsis Qualifiers: Sepsis type: sepsis due to unspecified organism Qualified Code(s): A41.9 - Sepsis, unspecified organism Pneumonia Qualifiers: Pneumonia type: due to unspecified organism Laterality: unspecified laterality Lung location: unspecified part of lung Qualified Code(s): J18.9 - Pneumonia, unspecified organism Disposition: ADMITTED INPATIENT 09 Certified Medical Emergency: Emergent Condition: Stable - Critical Care Note This patient required my direct & personal management of CC.: Yes Total Time (mins): 60 Critical Care Statement: This patient required my direct personal management to treat or rule out processes, the absence of which, could potentiallly result in sudden, clinically significant life or limb threatening deterioration. This chart was documented by the indicated scribe, (Marino Montero Scribe) and accurately reflects the services I performed and decisions made by , Len Garcia MD, as attested by the provider's signature.
--- NOTE | 2016-10-24 03:22 | DISCHARGE SUMMARY ---
ADMISSION DATE: 10/16/2016 DISCHARGE DATE: 10/22/2016 DISCHARGE DIAGNOSES: 1. Acute hypercapnic respiratory failure. 2. Left lower lobe pneumonia. 3. Infectious encephalopathy. 4. New onset seizures. 5. Dementia. 6. Constipation. CONSULTATIONS: 1. Dr. Gaviria from neurology. 2. Dr. Lisa Street from pulmonary. PROCEDURES: CT of the chest showed dense bilateral lower lobe infiltrates, suggesting pneumonia. Gallbladder packed with gallstones. Head CT showed no evidence of acute disease and chronic microvascular white matter changes and atherosclerosis. EEG showed abnormal EEG because of generalized slowing and there is indicative of diffuse encephalopathy that is not specific. HOSPITAL COURSE: This is a 76-year-old, male with a history of dementia, constipation, and TIA who apparently, on October 02, went to his primary care provider complaining of cough with bloody phlegm. The patient was started on antibiotics but he was not improving and he started having fevers. Today, he was found unresponsive in the morning so an ambulance was called. He was brought to the ER. Here, he was found to have a pneumonia. He was admitted for further evaluation and treatment. Unfortunately, despite putting this patient on antibiotics, pneumonia was not improving. Also, the patient was becoming more and more lethargic. ABG shows severe respiratory acidosis and hypercapnic respiratory failure. Patient was started on BiPAP but he was not responding properly and started having involuntary movements. The family has decided, because he was not getting good progress, for withdrawal of care. All elective medications were discontinued. He was placed on morphine and Ativan p.r.n. for pain and/or agitation. The patient will be admitted to inpatient hospice. PHYSICAL EXAMINATION: General Examination: This is a 76-year-old, male, very lethargic, in mild respiratory distress. HEENT: Head is normocephalic and atraumatic. Anicteric sclerae and pale conjunctivae. Mucous membranes moist. Neck: Supple. No JVD noted. No carotid bruits. No lymphadenopathy. No thyromegaly. Cardiovascular Examination: S1 and S2 heard. No murmurs, gallops, or rubs. Regular rate and rhythm. Pulmonary Examination: Coarse breath sounds and crackles in both bases. Patient is using accessory muscles. Tachypneic. Abdomen: Soft, nontender to palpation. Bowel sounds present. No organomegaly. Extremities: No clubbing, cyanosis. Edema of 2+ in both lower extremities. Neurological Examination: Patient definitely more lethargic. Does not follow commands but moves 4 extremities spontaneously. DISPOSITION: Patient is going to be admitted at inpatient hospice. cc: Pawel Richardson MD
== END 2016-10-22 12:10 | disposition hospice, inpatient (51) ==
LOC: ED 08:44 → ICU 15:45 → 4N 10-21 17:17
PROVIDERS: ATTEND Internal Medicine

== ENCOUNTER 2016-10-22 12:30 | Inpatient (IN) ==
[2016-10-22] MEDS ORDERED: MORPHINE IV PRN (13:45)
[2016-10-22] MEDS ORDERED: ATIVAN IV PRN (13:45)
[2016-10-22] MEDS ORDERED: ATROPINE 1% OPHTH SOLN SL PRN (14:02)
[2016-10-22] MEDS ORDERED: PHENERGAN IV PRN (14:03)
[2016-10-22] MEDS ORDERED: SODIUM CHLORIDE 0.9% INJ PRN (14:03)
[2016-10-22] MEDS: TYLENOL PR PRN ×3 (14:30→22:30)
[2016-10-22] MEDS ORDERED: BLISTEX MEDICATED BERRY LIP BALM TOP PRN (18:26)
[2016-10-23] MEDS: TYLENOL PR PRN ×5 (02:16→22:24)
--- NOTE | 2016-10-23 11:12 | PROGRESS NOTE ---
DATE: 10/23/2016 SUBJECTIVE: This patient is lethargic with mild respiratory distress. Family members at the bedside and also the hospice nurse. He is not in pain. He is resting comfortably. OBJECTIVE: Vital Signs: Temperature 100.5 degrees, pulse 103, respiratory rate 16, blood pressure 123/52, oxygen saturation 99 on a 15% venturi mask. HEENT: Head normocephalic. No trauma. PERRLA. Neck: Supple. No JVD. No masses. Central trachea. Chest: Coarse breath sounds, mostly at the bases. Decreased breath sounds at the level of the left lower lung with rhonchi. Abdomen: Soft, nondistended. Positive bowel sounds. Extremities: No edema. No clubbing. No cyanosis. Neurological Examination: This patient is lethargic. He is not following commands. ASSESSMENT AND PLAN: This patient has been admitted to inpatient hospice under the following diagnoses: 1. Acute hypercapnic respiratory failure. 2. Altered mental status. 3. Left lower lobe pneumonia. 4. Seizure disorder. 5. Dementia. 6. Constipation. For now, we will continue following the recommendations of hospice care. We will continue to monitor. cc: Dequan Arredondo MD
[2016-10-24] MEDS: TYLENOL PR PRN ×2 (06:21→09:47)
[2016-10-24 09:24] VITALS: BP 80/40
--- NOTE | 2016-10-25 09:22 | DISCHARGE SUMMARY ---
ADMISSION DATE: 10/22/2016 DISCHARGE DATE: 10/24/2016 The patient was admitted to inpatient hospice on 10/23/2016. DIAGNOSES: 1. Acute respiratory failure. 2. Altered mental status. 3. Left lower lobe pneumonia. 4. Seizure disorder. 5. Dementia. 6. Constipation. The patient at 10:46 a.m. on 10/24/2016. List of events are contained in a discharge summary on Dario Pritchard for Dr. Martini. Dictated by LEONA Avitia for Dequan Arredondo MD cc: MD Jonel Hayes MD
== END 2016-10-24 10:46 | disposition expired ==
LOC: 4N 12:30 → SUATTDRO 12:30
PROVIDERS: ATTEND Internal Medicine